=== PATIENT | female | born 1995 | race African-American/Black ===

== ENCOUNTER 2017-01-30 22:02 | Emergency (ER) | payer SELFPAY ==
[~2017-01-30] VITALS: Ht 170.2 cm; Wt 65.0 kg
[2017-01-30 22:04] VITALS: BP 131/68; PULSE 94; RESP 18; TEMP 97.5; O2SAT 100
[2017-01-30 22:50] LABS: BACTERIA, URINE RARE /hpf; BLOOD, URINE MOD (NEG); COMMENT (UR) CATH-CULTURE IND; CULTURE IF INDICATED CATH CULTURE IND; GLUCOSE,URINE NEG (NEG); KETONE, URINE 10 mg/dL (NEG); MUCUS URINE MOD /lpf (OCC); NITRITE,URINE NEG (NEG); PH, URINE 5.5 (5.0-8.5); SQUAMOUS EPITHELIAL CELL URINE 7 /hpf (0-5); URINE COLOR YELLOW (YELLW/STRAW)
== END 2017-01-31 00:05 | disposition left against medical advice (07) ==
LOC: NED 22:02
DX: K92.0 Hematemesis (principal); Z53.21 Procedure and treatment not carried out due to patient leaving prior to being seen by health care provider
CPT/HCPCS: 81001; 87086